=== PATIENT | male | born 1990 | race Two or more races ===

== ENCOUNTER → 2025-01-26 | Outpatient (CLI) | payer OTHER, SELFPAY ==
--- NOTE | 2025-01-26 09:19 | XR_ITS ---
Examination: Shoulder,right, 3 views Technique: Shoulder AP internal rotation, AP external rotation, Y view shoulder, 3 views Exam date and time :January 26, 2025, 0924 hours INDICATIONS: Onset right shoulder pain today. FINDINGS: Mild narrowing glenohumeral joint No shoulder fracture or dislocation No AC joint separation IMPRESSION: Mild narrowing glenohumeral joint Negative for calcific tendinitis No fracture or dislocation
--- NOTE | 2025-01-26 09:19 | XR_ITS ---
EXAMINATION: Cervical spine, 5 views Technique: Cervical spine AP, AP odontoid, lateral, bilateral obliques, 5 views Exam date and time: January 26, 2025, 0924 hours INDICATIONS: Onset neck pain today. FINDINGS: Straightening normal cervical lordosis. No cervical fracture. Intact odontoid No cervical disc narrowing The oblique films are suboptimal IMPRESSION: No cervical fracture or significant cervical disc narrowing
== END | disposition home or self-care (01) ==
PROVIDERS: PCP Nurse Practitioner Primary Care; Referring Provider Family Medicine; Visit Provider Family Medicine
DX: M54.2 Cervicalgia (principal); M25.811 Other specified joint disorders, right shoulder
CPT/HCPCS: 72050; 73030